=== PATIENT | male | born 1980 | race American Indian/Alaskan Native ===

== ENCOUNTER 2017-04-26 14:30 | Inpatient (IN) | payer OTHER ==
[2017-04-26 15:10] LABS: Basophils % (Auto) 0.9 % (0.0-1.8); Eosinophils % (Auto) 3.8 % (0.0-4.3); Hemoglobin 16.1 gm/dl (11.8-15.2); Mean Corpuscular HGB Conc 33 % (32-34); Mean Corpuscular Hemoglobin 28 pg (28-32); Mean Corpuscular Volume 86 fl (84-94); Platelet Count 157 K/mm3 (140-440); Red Blood Count 5.72 M/mm3 (3.65-5.03); Red Cell Distribution Width 14.5 % (13.2-15.2); White Blood Count 7.4 K/mm3 (4.5-11.0)
[2017-04-26 15:30] LABS: Anion Gap 16 mmol/L; BUN/Creatinine Ratio 4.28; Blood Urea Nitrogen 6 mg/dL (9-20); Calcium 8.6 mg/dL (8.4-10.2); Carbon Dioxide 28 mmol/L (22-30); Chloride 101.5 mmol/L (98-107); Glucose 101 mg/dL (75-100); Potassium 4.5 mmol/L (3.6-5.0); Sodium 141 mmol/L (137-145)
--- NOTE | 2017-04-26 16:29 | XRay Report ---
FINAL REPORT EXAM: XR CHEST ROUTINE 2V HISTORY: Shortness of breath TECHNIQUE: 2 view examination of the chest PRIORS: None FINDINGS: There is no visible pulmonary consolidation, pleural effusion, or pneumothorax. Cardiac silhouette size is normal without vascular congestion. No visible acute pathology in the regional skeleton. IMPRESSION: No evidence of acute cardiopulmonary disease
--- NOTE | 2017-04-26 19:53 | Cat Scan Report ---
FINAL REPORT PROCEDURE: CT angiogram chest with contrast. TECHNIQUE: Computerized tomographic angiography of the chest was performed after the IV injection of iodinated nonionic contrast including image processing. The image data was postprocessed using 2-dimensional multiplanar reformatted (MPR) and 3-dimensional (MIP and/or volume rendered) techniques. HISTORY: Shortness of breath. COMPARISON: No prior studies are available for comparison. FINDINGS: The trachea and central bronchi appear normal. The thoracic aorta has a normal caliber without evidence of dissection. There are filling defects within central branches of the right pulmonary artery. These are consistent with acute pulmonary emboli. There is no mediastinal adenopathy. The heart size is normal. There are no pleural effusions. There is a tiny peripheral area of wedge-shaped opacity located posteriorly in the left lower lobe. This is nonspecific. It could represent a small focus of pneumonia, subsegmental atelectasis or possibly pulmonary infarction. The remainder of the lungs are clear and well expanded. The thoracic skeleton appears intact. IMPRESSION: Acute pulmonary embolism in the right lung.
[2017-04-26] MEDS ORDERED: NACL 0.9% 1000 ML 1,000 ML IV ONE (20:11)
[2017-04-26] MEDS ORDERED: LOVENOX SUB-Q ONE (20:11)
--- NOTE | 2017-04-26 20:31 | Emergency Department Report ---
ED Shortness of Breath HPI - General Chief Complaint: Dyspnea/Respdistress Stated Complaint: MILTON/CHEST PAIN Time Seen by Provider: 04/26/17 20:22 Source: patient Mode of arrival: Ambulatory Limitations: No Limitations - History of Present Illness MD Complaint: shortness of breath -: Gradual Radiation: back Severity: moderate Pain Scale: 6 Quality: dull, aching Consistency: constant Improves With: nothing Worsens With: nothing Associated Symptoms: chest pain, pain with inspiration, orhopnia, palpitations Treatments Prior to Arrival: none - Related Data Home Oxygen Therapy: No Allergies Allergy/AdvReac Type Severity Reaction Status Date / Time No Known Allergies Allergy Unverified 04/26/17 14:46 ED Review of Systems ROS: Stated complaint: MILTON/CHEST PAIN Other details as noted in HPI Comment: All other systems reviewed and negative ED Past Medical Hx - Past Medical History Previous Medical History?: No - Surgical History Past Surgical History?: No - Social History Smoking Status: Current Every Day Smoker Substance Use Type: Alcohol, Marijuana ED Physical Exam - General Limitations: No Limitations General appearance: alert, in no apparent distress - Head Head exam: Present: atraumatic, normocephalic - Eye Eye exam: Present: normal appearance - ENT ENT exam: Present: normal exam, normal orophraynx, mucous membranes moist - Neck Neck exam: Present: normal inspection - Respiratory Respiratory exam: Present: normal lung sounds bilaterally. Absent: respiratory distress - Cardiovascular Cardiovascular Exam: Present: regular rate, normal rhythm. Absent: systolic murmur, diastolic murmur, rubs, gallop - GI/Abdominal GI/Abdominal exam: Present: soft, normal bowel sounds - Rectal Rectal exam: Present: deferred - Extremities Exam Extremities exam: Present: normal inspection - Back Exam Back exam: Present: normal inspection - Neurological Exam Neurological exam: Present: alert, oriented X3 - Psychiatric Psychiatric exam: Present: normal affect, normal mood - Skin Skin exam: Present: warm, dry, intact, normal color. Absent: rash ED Course Vital Signs 04/26/17 04/26/17 14:46 20:01 Temperature 98.1 F 97.8 F Pulse Rate 101 H 66 Respiratory 16 20 Rate Blood Pressure 135/98 Blood Pressure 131/84 [Left] O2 Sat by Pulse 96 99 Oximetry ED Medical Decision Making - Lab Data Result diagrams: 04/26/17 14:57 04/26/17 14:57 - EKG Data -: EKG Interpreted by Me - EKG Data When compared to previous EKG there are: no significant change - Radiology Data Radiology results: report reviewed, image reviewed - Medical Decision Making will need admission for PE, lovenox and fluids given , will need admission for further treatment Critical care attestation.: If time is entered above; I have spent that time in minutes in the direct care of this critically ill patient, excluding procedure time. ED Disposition Clinical Impression: Pulmonary embolism Disposition: OP ADMIT IP TO THIS HOSP Is pt being admited?: Yes Does the pt Need Aspirin: No Condition: Good Referrals: PRIMARY CARE, [Primary Care Provider] - 3-5 Days Time of Disposition: 20:31
[2017-04-26 20:32] LABS: INR 0.99 (0.87-1.13); Partial Thromboplastin Time 25.8 Sec. (24.2-36.6)
[2017-04-26] MEDS ORDERED: ZOFRAN IV PRN (23:24)
[2017-04-26] MEDS ORDERED: TYLENOL PO PRN (23:24)
[2017-04-26] MEDS ORDERED: PERCOCET 5/325 PO PRN (23:24)
[2017-04-26] MEDS ORDERED: MILK OF MAGNESIA PO PRN (23:24)
[2017-04-26] MEDS ORDERED: DULCOLAX PR PRN (23:24)
--- NOTE | 2017-04-26 23:27 | History and Physical Report ---
History of Present Illness Date of examination: 04/26/17 History of present illness: 37-year-old man with no medical history comes emergency room with complaints of chest pain located on the right chest which she described as something pressing down on her chest, constant, started yesterday, intensity 7/10, no radiation, he cannot identify exacerbating or relieving factors. He denies nausea vomiting , shortness breath, diaphoresis and palpitation. Also complaining of pain in the right calf. Denies any recent travel, cough, abdominal pain, hematochezia, dysuria, frequency, focal weakness, dysarthria, fever chills, polydipsia polyuria, hot or cold intolerance, easy bruisability, or rash or bleeding from mucosal membrane, rhinorrhea, epistaxis, earache, tinnitus, blurry vision, eye discharge, anxiety, depression. Other review of systems negative PAST SURGICAL HISTORY: wrist SOCIAL HISTORY: Smoke half a pack of cigarette a day, alcohol use, marijuana use FAMILY HISTORY: Hypertension Medications and Allergies Allergies Allergy/AdvReac Type Severity Reaction Status Date / Time No Known Allergies Allergy Unverified 04/26/17 14:46 Exam - Physical Exam Narrative exam: Gen. appearance: Patient lying in bed, no apparent distress HEENT: Normocephalic, atraumatic, pupils equally round and reactive to light, extraocular movement intact, and no sclericterus,. No JVD or thyromegaly or nodule,neck supple, no carotid bruit ,mucous membranes moist, no exudate or erythema Heart: S1, S2, regular rate and rhythm Lungs: Clear to auscultation bilaterally, breathing comfortable Abdomen: Positive bowel sounds, nontender, nondistended, no organomegaly Extremity: No edema, cyanosis, clubbing Skin: No rash, nodules, warm, dry Neuro: Oriented 3, cranial nerves II-12 intact, speech is fluent, motor and sensory intact - Constitutional Vitals: Temp Pulse Resp BP Pulse Ox 98 F 58 L 18 125/56 95 04/26/17 20:50 04/26/17 20:50 04/26/17 20:50 04/26/17 20:50 04/26/17 20:50 Results - Labs CBC & Chem 7: 04/27/17 03:51 04/27/17 03:51 Labs: Abnormal lab results 04/26/17 04/26/1717 Range/Units 14:57 14:57 14:57 RBC 5.72 H (3.65-5.03) M/mm3 Hgb 16.1 H (11.8-15.2) gm/dl Hct 49.0 H (35.5-45.6) % Seg Neutrophils % 72.8 H (40.0-70.0) % D-Dimer 646.41 H (0-234) ng/mlDDU BUN 6 L (9-20) mg/dL Glucose 101 H (75-100) mg/dL - Imaging and Cardiology EKG: image reviewed Chest x-ray: image reviewed CT scan - chest: report reviewed Assessment and Plan Acute pulmonary emboli Admit to medicine start full dose lovenox, obtain doppler of lower extremity DVT prophalaxis initiated Patient will need coagulopathy workup once anticoagulation is discontinued
[2017-04-27 04:59] LABS: Basophils % (Auto) 0.6 % (0.0-1.8); Eosinophils % (Auto) 4.9 % (0.0-4.3); Hematocrit 44.2 % (35.5-45.6); Hemoglobin 14.4 gm/dl (11.8-15.2); Mean Corpuscular HGB Conc 33 % (32-34); Mean Corpuscular Hemoglobin 28 pg (28-32); Mean Corpuscular Volume 85 fl (84-94); Platelet Count 148 K/mm3 (140-440); Red Blood Count 5.19 M/mm3 (3.65-5.03); Red Cell Distribution Width 14.1 % (13.2-15.2); White Blood Count 8.4 K/mm3 (4.5-11.0)
[2017-04-27 05:19] LABS: Anion Gap 10 mmol/L; BUN/Creatinine Ratio 4.54; Blood Urea Nitrogen 5 mg/dL (9-20); Calcium 7.8 mg/dL (8.4-10.2); Carbon Dioxide 29 mmol/L (22-30); Chloride 105.4 mmol/L (98-107); Glucose 116 mg/dL (75-100); Potassium 3.7 mmol/L (3.6-5.0); Sodium 141 mmol/L (137-145)
[2017-04-27] MEDS: LOVENOX SUB-Q SCH ×2 (08:30→21:11)
--- NOTE | 2017-04-27 13:28 | Progress Note ---
Assessment and Plan 37-year-old man with no medical history comes emergency room with complaints of chest pain located on the right chest. CTA showed RT Lung PE, venous doppler also showed rt LE DVT. States that he recently drove from [place]. Acute pulmonary emboli RT LE DVT - monitor at medicine - cont full dose lovenox, place on coumadin - Patient will need coagulopathy workup once anticoagulation is discontinued as outpt Subjective Date of service: 04/27/17 Interval history: pt seen and examined Pt c/o rt LE pain denies any chest pain now, breathing improved Objective - Constitutional Vitals: Vital Signs - 12hr 04/27/17 04/27/17 04/27/17 01:44 04:00 07:31 Temperature 98 F 98.2 F 98.9 F Pulse Rate 75 Pulse Rate [ 82 60 Right Radial] Respiratory 18 18 18 Rate Blood Pressure 120/62 [Left] Blood Pressure 126/60 110/61 [Right Arm] O2 Sat by Pulse 100 99 96 Oximetry 04/27/17 04/27/17 08:35 09:12 Temperature Pulse Rate 60 Pulse Rate [ Right Radial] Respiratory Rate Blood Pressure [Left] Blood Pressure [Right Arm] O2 Sat by Pulse 98 Oximetry General appearance: Present: no acute distress, well-nourished - EENT Eyes: PERRL, EOM intact ENT: hearing intact, clear oral mucosa Ears: bilateral: normal - Neck Neck: supple, normal ROM - Respiratory Respiratory effort: normal Respiratory: bilateral: CTA - Cardiovascular Rhythm: regular Heart Sounds: Present: S1 & S2. Absent: gallop, rub Extremities: pulses intact, No edema, normal color, Full ROM, abnormal (rt calf tenderness) - Gastrointestinal General gastrointestinal: Present: soft, non-tender, non-distended, normal bowel sounds - Integumentary Integumentary: clear, warm, dry - Musculoskeletal Musculoskeletal: 1, strength equal bilaterally - Neurologic Neurologic: moves all extremities - Psychiatric Psychiatric: memory intact, appropriate mood/affect, intact judgment & insight - Labs CBC & Chem 7: 04/27/17 03:51 04/27/17 03:51 Labs: Abnormal lab results 04/27/17 04/27/17 Range/Units 03:51 03:51 RBC 5.19 H (3.65-5.03) M/mm3 Eos % (Auto) 4.9 H (0.0-4.3) % BUN 5 L (9-20) mg/dL Glucose 116 H (75-100) mg/dL Calcium 7.8 L (8.4-10.2) mg/dL - Imaging and cardiology CT scan - chest: report reviewed Venous US: report reviewed
[2017-04-27] MEDS: COUMADIN PO SCH (16:45)
[2017-04-27] MEDS ORDERED: COUMADIN PO SCH (17:00)
--- NOTE | 2017-04-28 02:43 | Admit Criteria Form ---
Admission Criteria Documentation: PULMONARY EMBOLISM Clinical Indications for Admission to Inpatient Care (Place 'X' for any and all applicable criteria): Admission is indicated for 1 or more of the following(1)(2)(3)(4)(5)(6)(7) [ ]I. Hypoxemia [ ]II. Vital sign abnormality (8) indicated by ALL of the following: [ ]a) Vital sign findings not as expected for chronic patient condition or baseline (eg, intentionally low, blood pressure in heart failure) [ ]b) Vital sign abnormality as indicated by 1 or more of the following [ ]l) Tachycardia [ ]ll) Hypotension [ ]lll) Orthostatic vital sign changes [ ]III. History of cancer [ ]IV. History of chronic cardiopulmonary disease (eg. CHF, coronary artery disease, COPD, cor pulmonale) [ ]V. Cardiac arrhythmias of intermediate concern [ ]. Right ventricular dysfunction (eg, by echocardiogram) [ ]VII. Positive cardiac biomarker (eg, troponin T or I > 0.1 ng/mL (mcg/L), highly sensitive troponin I assay greater than 0.014 ng/mL (mcg/L), BNP or NT proBNP > assay threshold)(8 )(10)(11) [ ]VIII. Need for IV narcotics (eg, to treat dyspnea) 1 or more of following: [ ]a) Bleeding before anticoagulation [ ]b) Recent surgery (eg, within 3 months) that increases risk of catastrophic bleeding (eg, spinal surgery, intracranial surgery, cardiovascular surgery) [ ]c) Recent GI bleeding (eg, within 3 months) or known increased risk of GI bleed (eg,esophageal varices, current ulcer) [ ]d) Recent (eg, within 3 months) ischemic stroke [ ]e) History of intracranial bleeding (eg, hemorrhagic stroke) [ ]f) History of active bleeding when anticoagulated [ ]g) Active substance abuse [ ]h) Other risk factor thought to place patient at high risk such that ability to rapidly reverse reversal agent) [ ]X. Documented extensive thrombosis (eg, clot in vena cava or above iliofemoral bifurcation) [ ]Xl. Thrombolysis (eg, catheter-directed) or pharmacomechanical thrombectomy needed[A][B](8) [ ]XIl. Vena cava filter placement needed (eg, unable to anticoagulate)[C](8) [ ]Xlll. with delivery planned (eg, 37 or more weeks' gestation)(14 ) [ ]XlV. Limb-threatening thrombosis (eg, phlegmasia cerula dolens) [ ]XV. Embolism while on anti-coagulation [ ]XVl. Contraindication to outpatient use of medication with rapid anticoagulation effect as indicated by ALL of the following: [ ] a) Contraindication to use of rdh-gesfkijau-wherwx heparin[E][F ] indicated by 1 or more of the following(16): [ ] i) Documented current or history of heparin-induced thrombocytopenia(15) [ ] ii) Severe thrombocytopenia (eg, platelet count less than 50 ,000/mm3 (50 x109/L)) [ ] iii) Allergy to heparin, vub-iudojnkrk-fgrooh heparin, or product component [ ] iv) Renal failure (creatinine clearance less than 30 mL/min/ 1.73m2 (0.50 mL/sec/1.73m2) or on dialysis) [ ] v) Need for neuraxial anesthesia or spinal puncture anticipated [ ] vi) Inability to manage self-injection (eg. By patient, caregiver, or visiting nurse) [ ] b) Contraindication to use of fondaparinux indicated by 1 or more of the following: [ ] i) Documented current or history of heparin-induced thrombocytopenia (15) [ ] ii) Severe thrombocytopenia (eg, platelet count less than 50 ,000/mm3 (50 x109/L)) [ ] iii) Allergy to fondaparinux, related drugs, or product components [ ] iv) Renal failure (creatinine clearance less than 30 mL/min/ 1.73m2 (0.50 mL/sec/1.73m2) or on dialysis) [ ] v) [ ] vi) Liver disease with coagulopathy (eg, elevated INR due to liver disease) [ ] vii) Mechanical heart valve [ ] viii) Need for neuraxial anesthesia or spinal puncture anticipated [ ] xi) Inability to manage self-injection (eg, by patient, caregiver, or visiting nurse) [ ] c) Contraindication to use of an oral direct thrombin inhibitor (eg, dabigatran) or an oral coagulation factor Xa inhibitor (eg, rivaroxaban, apixaban)[E][F] indicated by 1 or more of the following(17)(18): [ ] i) Severe thrombocytopenia (eg, platelet count less than 50, 000/mm3 (50 x109/L)) [ ] ii) Allergy to medication or product components x109/L)) [ ] iii) Renal failure (creatinine clearance less than 30 mL/min /1.73m2 (0.50 mL/sec/1.73m2) or on dialysis) [ ] iv) [ ] v) Liver disease with coagulopathy (eg, elevated INR due to liver disease) [ ] vi) Mechanical heart valve [ ] vii) Need for neuraxial anesthesia or spinal puncture anticipated [ X]XVll. Inpatient admission required rather than observation care (Also use Pulmonary Embolism: Observation Care guideline as appropriate) because of ANY ONE of the following: [ ] a) Significant autoimmune (thrombocytopenia) or coagulopathic reaction occurs in response to anticoagulation [ ] b) Respiratory symptoms (eg, tachypnea, dyspnea) that are severe or persistent [X ] c) Other condition, treatment, or monitoring requiring inpatient admission The original [facility] content created by [employer] has been revised. The portions of the content which have been revised are identified through the use of italic text or in bold, and [facility] has neither reviewed nor approved the modified material. All other unmodified content is copyright [facility]. Please see references footnoted in the original [facility] edition 2017 Admission Criteria Met: Yes
--- NOTE | 2017-04-28 07:37 | Vascular Lab Report ---
LOWER EXTREMITY VENOUS DUPLEX: REASON FOR EXAM: Pain and swelling of the lower extremities. COMMENTS ON THE RIGHT: Acute deep venous thrombosis is noted in the peroneal vein extending through and into the above-knee segment of popliteal vein.. The remaining veins visualized are freely compressible without evidence of internal echogenicity. Spontaneous and phasic flow is present proximally. COMMENTS ON THE LEFT: All veins visualized are freely compressible without evidence of internal echogenicity. Flow is spontaneous and phasic throughout. IMPRESSION: Acute deep venous thrombosis in the right lower extremity
[2017-04-28] MEDS: LOVENOX SUB-Q SCH ×2 (08:47→21:10)
[2017-04-28 15:25] LABS: INR 1.06 (0.87-1.13)
[2017-04-28] MEDS: COUMADIN PO SCH (16:54)
--- NOTE | 2017-04-29 00:34 | Progress Note ---
Assessment and Plan 37-year-old man with no medical history comes emergency room with complaints of chest pain located on the right chest. CTA showed RT Lung PE, venous doppler also showed rt LE DVT. States that he recently drove from [place]. Acute pulmonary emboli RT LE DVT - monitor at medicine - cont full dose lovenox, place on coumadin - Patient will need coagulopathy workup once anticoagulation is discontinued as outpt Subjective Date of service: 04/28/17 Interval history: pt seen and examined denies any chest pain now, breathing improved Objective - Constitutional Vitals: Vital Signs - 12hr 04/28/17 04/28/17 04/28/17 15:45 19:00 20:11 Temperature 98.5 F 98.6 F Pulse Rate [ 58 L 67 Right Radial] Respiratory 22 23 Rate Blood Pressure 121/60 115/70 [Right Arm] O2 Sat by Pulse 96 96 Oximetry General appearance: Present: no acute distress, well-nourished - EENT Eyes: PERRL, EOM intact ENT: hearing intact, clear oral mucosa Ears: bilateral: normal - Neck Neck: supple, normal ROM - Respiratory Respiratory effort: normal Respiratory: bilateral: CTA - Cardiovascular Rhythm: regular Heart Sounds: Present: S1 & S2. Absent: gallop, rub Extremities: pulses intact, No edema, normal color, Full ROM - Gastrointestinal General gastrointestinal: Present: soft, non-tender, non-distended, normal bowel sounds - Integumentary Integumentary: clear, warm, dry - Musculoskeletal Musculoskeletal: 1, strength equal bilaterally - Neurologic Neurologic: moves all extremities - Psychiatric Psychiatric: memory intact, appropriate mood/affect, intact judgment & insight - Labs CBC & Chem 7: 04/27/17 03:51 04/27/17 03:51
[2017-04-29] MEDS: LOVENOX SUB-Q SCH ×2 (08:44→21:20)
[2017-04-29 09:54] LABS: INR 1.26 (0.87-1.13)
--- NOTE | 2017-04-29 10:11 | Progress Note ---
Assessment and Plan Assessment and plan: Acute pulmonary embolism right lung. Started on Lovenox, coumadin. INR 1.26 today. to discharge home when INR>2 DVT right lower ext. He had recent road trip from [place]. Consult Hematology Full code status History Interval history: Right leg pain improved, Less chest pain Hospitalist Physical - Physical exam Narrative exam: Gen Appearance: No acute distress, HEENT: normocephalic, atraumatic Neck: supple, no JVD Lungs: clear to auscultation bilaterally, no crackles or wheezes Heart: S1 and S2 regular, no murmurs rubs or gallop Abdomen: Soft, non-tender, non-distended, normal bowel sounds Extremity:No edema, clubbing or cyanosis Neuro : Awake alert oriented 3, no focal neurological signs Psych :calm - Constitutional Vitals: Temp Pulse Resp BP Pulse Ox 98.2 F 55 L 18 117/66 98 04/29/17 08:00 04/29/17 08:00 04/29/17 08:00 04/29/17 08:00 04/29/17 08:00 General appearance: Present: no acute distress, well-nourished Results - Labs CBC & Chem 7: 04/27/17 03:51 04/27/17 03:51 Labs: Laboratory Last Values WBC 8.4 K/mm3 (4.5-11.0) 04/27/17 03:51 RBC 5.19 M/mm3 (3.65-5.03) H 04/27/17 03:51 Hgb 14.4 gm/dl (11.8-15.2) 04/27/17 03:51 Hct 44.2 % (35.5-45.6) 04/27/17 03:51 MCV 85 fl (84-94) 04/27/17 03:51 MCH 28 pg (28-32) 04/27/17 03:51 MCHC 33 % (32-34) 04/27/17 03:51 RDW 14.1 % (13.2-15.2) 04/27/17 03:51 Plt Count 148 K/mm3 (140-440) 04/27/17 03:51 Lymph % (Auto) 27.2 % (13.4-35.0) 04/27/17 03:51 [place]vert % (Auto) 5.1 % (0.0-7.3) 04/27/17 03:51 Eos % (Auto) 4.9 % (0.0-4.3) H 04/27/17 03:51 Baso % (Auto) 0.6 % (0.0-1.8) 04/27/17 03:51 Lymph # 2.3 K/mm3 (1.2-5.4) 04/27/17 03:51 Calvert # 0.4 K/mm3 (0.0-0.8) 04/27/17 03:51 Eos # 0.4 K/mm3 (0.0-0.4) 04/27/17 03:51 Baso # 0.0 K/mm3 (0.0-0.1) 04/27/17 03:51 Seg Neutrophils % 62.2 % (40.0-70.0) 04/27/17 03:51 Seg Neutrophils # 5.2 K/mm3 (1.8-7.7) 04/27/17 03:51 PT 15.7 Sec. (12.2-14.9) H 04/29/17 06:56 INR 1.26 (0.87-1.13) H 04/29/17 06:56 APTT 25.8 Sec. (24.2-36.6) 04/26/17 14:57 D-Dimer 646.41 ng/mlDDU (0-234) H 04/26/17 14:57 Sodium 141 mmol/L (137-145) 04/27/17 03:51 Potassium 3.7 mmol/L (3.6-5.0) 04/27/17 03:51 Chloride 105.4 mmol/L (98-107) 04/27/17 03:51 Carbon Dioxide 29 mmol/L (22-30) 04/27/17 03:51 Anion Gap 10 mmol/L 04/27/17 03:51 BUN 5 mg/dL (9-20) L 04/27/17 03:51 Creatinine 1.1 mg/dL (0.8-1.5) 04/27/17 03:51 Estimated GFR > 60 ml/min 04/27/17 03:51 BUN/Creatinine Ratio 4.54 % 04/27/17 03:51 Glucose 116 mg/dL (75-100) H 04/27/17 03:51 Calcium 7.8 mg/dL (8.4-10.2) L 04/27/17 03:51 Troponin T < 0.010 ng/mL (0.00-0.029) 04/26/17 14:57
--- NOTE | 2017-04-29 16:17 | Hem/Onc Consultation ---
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 He spends a lot of time driving short trips. Had a trip with his family to [place] recently but stopped frequently. No prolonged trips without stopping. No recent surgery but does have a history of surgery 4 years ago in the right leg where he now has a DVT. He smokes 1/2 ppd. He does not use testosterone. No personal or family history of other clots. Chest is currently feeling much better, breathing is easier. Past History Past Medical History: No medical history Past Surgical History: Other (right foot surgery 2012) Social history: smoking Family history: no significant family history Medications and Allergies Allergies Allergy/AdvReac Type Severity Reaction Status Date / Time No Known Allergies Allergy Unverified 04/26/17 14:46 Home Medications Medication Instructions Recorded Confirmed Last Taken Type No Known Home Medications [No 04/28/17 04/28/17 Unknown History Reported Home Medications] Active Meds: Active Medications Acetaminophen (Tylenol) 650 mg PO Q4H PRN PRN Reason: Pain MILD(1-3)/Fever >100.5/DAVILA Bisacodyl (Dulcolax) 10 mg [place] QDAY PRN PRN Reason: Constipation unrelieved by MOM Enoxaparin Sodium (Lovenox) 90 mg 1 mg/kg (90 mg) SUB-Q Q12H [facility] Last Admin: 04/29/17 08:44 Dose: 90 mg Magnesium Hydroxide (Milk Of Magnesia) 30 ml PO Q4H PRN PRN Reason: Constipation Ondansetron HCl (Zofran) 4 mg IV Q8H PRN PRN Reason: N/V unrelieved by Reglan Oxycodone/Acetaminophen (Percocet 5/325) 1 tab PO Q6H PRN PRN Reason: Pain, Moderate (4-6) Warfarin Sodium (Coumadin Pharmacy To Dose) 1 each PO PKCONSULT [facility] PRN Reason: Protocol Warfarin Sodium (Coumadin) 10 mg PO DAILY@1700 [facility] Last Admin: 04/28/17 16:54 Dose: 10 mg Review of Systems Constitutional: no fatigue Ears, nose, mouth and throat: no mouth pain Cardiovascular: shortness of breath Respiratory: shortness of breath Musculoskeletal: no myalgias Neurological: no headaches Exam - Constitutional Vitals: Last Vital Signs Temp 98.2 F 04/29/17 08:00 Pulse 64 04/29/17 11:00 Resp 20 04/29/17 10:00 BP 117/66 04/29/17 08:00 Pulse Ox 98 04/29/17 08:00 - Neck Neck: normal ROM - Respiratory Respiratory effort: Positive: normal - Cardiovascular Rhythm: regular Extremities: No edema - Gastrointestinal General gastrointestinal: Present: soft, non-tender - Integumentary Integumentary: warm, dry - Neurologic Neurologic: no focal deficits Results - Labs lab Results: Laboratory Results - last 24 hr 04/29/17 06:56 PT 15.7 H INR 1.26 H Assessment and Plan DVT/PE - 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
[2017-04-29] MEDS: COUMADIN PO SCH (16:30)
[2017-04-30 04:45] LABS: INR 1.57 (0.87-1.13)
[2017-04-30] MEDS: LOVENOX SUB-Q SCH ×2 (08:30→19:55)
--- NOTE | 2017-04-30 10:13 | Progress Note ---
Assessment and Plan Assessment and plan: Acute pulmonary embolism right lung. Started on Lovenox, coumadin. INR 1.57 today. To discharge home when INR>2, likely in 1-2 days. I had discussions with him. he was evaluated by [facility] DVT right lower ext. He had recent road trip from [place]. Hematology following. Full code status History Interval history: Right leg pain improved, Less chest pain, Anxious about wanting to go home Hospitalist Physical - Physical exam Narrative exam: Gen Appearance: No acute distress, HEENT: normocephalic, atraumatic Neck: supple, no JVD Lungs: clear to auscultation bilaterally, no crackles or wheezes Heart: S1 and S2 regular, no murmurs rubs or gallop Abdomen: Soft, non-tender, non-distended, normal bowel sounds Extremity:No edema, clubbing or cyanosis Neuro : Awake alert oriented 3, no focal neurological signs Psych :calm - Constitutional Vitals: Temp Pulse Resp BP Pulse Ox 98.3 F 65 18 101/69 97 04/30/17 07:36 04/30/17 07:36 04/30/17 07:36 04/30/17 07:36 04/30/17 07:36 General appearance: Present: no acute distress, well-nourished Results - Labs CBC & Chem 7: 04/27/17 03:51 04/27/17 03:51 Labs: Laboratory Last Values WBC 8.4 K/mm3 (4.5-11.0) 04/27/17 03:51 RBC 5.19 M/mm3 (3.65-5.03) H 04/27/17 03:51 Hgb 14.4 gm/dl (11.8-15.2) 04/27/17 03:51 Hct 44.2 % (35.5-45.6) 04/27/17 03:51 MCV 85 fl (84-94) 04/27/17 03:51 MCH 28 pg (28-32) 04/27/17 03:51 MCHC 33 % (32-34) 04/27/17 03:51 RDW 14.1 % (13.2-15.2) 04/27/17 03:51 Plt Count 148 K/mm3 (140-440) 04/27/17 03:51 Lymph % (Auto) 27.2 % (13.4-35.0) 04/27/17 03:51 [place] % (Auto) 5.1 % (0.0-7.3) 04/27/17 03:51 Eos % (Auto) 4.9 % (0.0-4.3) H 04/27/17 03:51 Baso % (Auto) 0.6 % (0.0-1.8) 04/27/17 03:51 Lymph # 2.3 K/mm3 (1.2-5.4) 04/27/17 03:51 [place] # 0.4 K/mm3 (0.0-0.8) 04/27/17 03:51 Eos # 0.4 K/mm3 (0.0-0.4) 04/27/17 03:51 Baso # 0.0 K/mm3 (0.0-0.1) 04/27/17 03:51 Seg Neutrophils % 62.2 % (40.0-70.0) 04/27/17 03:51 Seg Neutrophils # 5.2 K/mm3 (1.8-7.7) 04/27/17 03:51 PT 18.7 Sec. (12.2-14.9) H 04/30/17 04:20 INR 1.57 (0.87-1.13) H 04/30/17 04:20 APTT 25.8 Sec. (24.2-36.6) 04/26/17 14:57 D-Dimer 646.41 ng/mlDDU (0-234) H 04/26/17 14:57 Sodium 141 mmol/L (137-145) 04/27/17 03:51 Potassium 3.7 mmol/L (3.6-5.0) 04/27/17 03:51 Chloride 105.4 mmol/L (98-107) 04/27/17 03:51 Carbon Dioxide 29 mmol/L (22-30) 04/27/17 03:51 Anion Gap 10 mmol/L 04/27/17 03:51 BUN 5 mg/dL (9-20) L 04/27/17 03:51 Creatinine 1.1 mg/dL (0.8-1.5) 04/27/17 03:51 Estimated GFR > 60 ml/min 04/27/17 03:51 BUN/Creatinine Ratio 4.54 % 04/27/17 03:51 Glucose 116 mg/dL (75-100) H 04/27/17 03:51 Calcium 7.8 mg/dL (8.4-10.2) L 04/27/17 03:51 Troponin T < 0.010 ng/mL (0.00-0.029) 04/26/17 14:57
--- NOTE | 2017-04-30 11:08 | Hem/Onc Progress Note ---
Assessment and Plan - Patient Problems (1) Pulmonary embolism Current Visit: Yes Status: Acute Qualifiers: Pulmonary embolism type: P Chronicity: C Acute cor pulmonale presence: A Plan to address problem: He feels well. Explained to him the importance of outpatient followup. He understands, card with appt given to him Subjective Date of service: 04/30/17 Interval history: Feels better overall. Objective - Constitutional Vitals: Last Vital Signs Temp 98.3 F 04/30/17 07:36 Pulse 65 04/30/17 07:36 Resp 18 04/30/17 07:36 BP 101/69 04/30/17 07:36 Pulse Ox 97 04/30/17 07:36 - EENT Eyes: PERRL ENT: hearing intact Lymph node exam: negative cervical - Neck Neck: supple - Respiratory Respiratory effort: Positive: normal Respiratory: bilateral: CTA - Cardiovascular Rhythm: regular - Gastrointestinal General gastrointestinal: Present: soft - Psychiatric Psychiatric: appropriate mood/affect - Labs Lab Results: Laboratory Results - last 24 hr 04/30/17 04:20 PT 18.7 H INR 1.57 H
[2017-04-30] MEDS: COUMADIN PO SCH (17:30)
[2017-05-01 06:06] LABS: INR 1.63 (0.87-1.13)
[2017-05-01] MEDS: LOVENOX SUB-Q SCH ×2 (10:02→18:55)
--- NOTE | 2017-05-01 10:39 | Progress Note ---
Hospitalist Physical - Constitutional Vitals: Temp Pulse Resp BP Pulse Ox 98.8 F 53 L 18 112/68 98 05/01/17 07:33 05/01/17 08:14 05/01/17 07:37 05/01/17 07:33 05/01/17 07:33 General appearance: Present: no acute distress, well-nourished Results - Labs CBC & Chem 7: 04/27/17 03:51 04/27/17 03:51 Labs: Laboratory Last Values WBC 8.4 K/mm3 (4.5-11.0) 04/27/17 03:51 RBC 5.19 M/mm3 (3.65-5.03) H 04/27/17 03:51 Hgb 14.4 gm/dl (11.8-15.2) 04/27/17 03:51 Hct 44.2 % (35.5-45.6) 04/27/17 03:51 MCV 85 fl (84-94) 04/27/17 03:51 MCH 28 pg (28-32) 04/27/17 03:51 MCHC 33 % (32-34) 04/27/17 03:51 RDW 14.1 % (13.2-15.2) 04/27/17 03:51 Plt Count 148 K/mm3 (140-440) 04/27/17 03:51 Lymph % (Auto) 27.2 % (13.4-35.0) 04/27/17 03:51 [place] % (Auto) 5.1 % (0.0-7.3) 04/27/17 03:51 Eos % (Auto) 4.9 % (0.0-4.3) H 04/27/17 03:51 Baso % (Auto) 0.6 % (0.0-1.8) 04/27/17 03:51 Lymph # 2.3 K/mm3 (1.2-5.4) 04/27/17 03:51 [place] # 0.4 K/mm3 (0.0-0.8) 04/27/17 03:51 Eos # 0.4 K/mm3 (0.0-0.4) 04/27/17 03:51 Baso # 0.0 K/mm3 (0.0-0.1) 04/27/17 03:51 Seg Neutrophils % 62.2 % (40.0-70.0) 04/27/17 03:51 Seg Neutrophils # 5.2 K/mm3 (1.8-7.7) 04/27/17 03:51 PT 19.3 Sec. (12.2-14.9) H 05/01/17 04:46 INR 1.63 (0.87-1.13) H 05/01/17 04:46 APTT 25.8 Sec. (24.2-36.6) 04/26/17 14:57 D-Dimer 646.41 ng/mlDDU (0-234) H 04/26/17 14:57 Sodium 141 mmol/L (137-145) 04/27/17 03:51 Potassium 3.7 mmol/L (3.6-5.0) 04/27/17 03:51 Chloride 105.4 mmol/L (98-107) 04/27/17 03:51 Carbon Dioxide 29 mmol/L (22-30) 04/27/17 03:51 Anion Gap 10 mmol/L 04/27/17 03:51 BUN 5 mg/dL (9-20) L 04/27/17 03:51 Creatinine 1.1 mg/dL (0.8-1.5) 04/27/17 03:51 Estimated GFR > 60 ml/min 04/27/17 03:51 BUN/Creatinine Ratio 4.54 % 04/27/17 03:51 Glucose 116 mg/dL (75-100) H 04/27/17 03:51 Calcium 7.8 mg/dL (8.4-10.2) L 04/27/17 03:51 Troponin T < 0.010 ng/mL (0.00-0.029) 04/26/17 14:57
--- NOTE | 2017-05-01 10:44 | Discharge Summary ---
Providers - Providers Date of Admission: 04/26/17 23:24 Date of discharge: 05/01/17 Attending physician: OSCAR MOSLEY 04/29/17 07:57 Consult to Physician [CONS] Routine Consulting Provider: MELVIN SWANSON Reason For Exam: DVT right leg Place consult to:: Dr. Swanson Notified:: Jaycee ZAVALA Phone number called:: Was contact made?: Yes If yes, spoke with:: Leeanne-answering service Time called:: 08:56 Primary care physician: [employer] Hospitalization Condition: Good Disposition: DC-01 TO HOME OR SELFCARE - Discharge Diagnoses (1) Pulmonary embolism Status: Acute Qualifiers: Pulmonary embolism type: P Chronicity: C Acute cor pulmonale presence: A Core Measure Documentation - Palliative Care Palliative Care/ Comfort Measures: Not Applicable Exam - Constitutional Vitals: Temp Pulse Resp BP Pulse Ox 98.8 F 53 L 18 112/68 98 05/01/17 07:33 05/01/17 08:14 05/01/17 07:37 05/01/17 07:33 05/01/17 07:33 Plan Activity: advance as tolerated Diet: regular Additional Instructions: 1.Follow up with PCP or [facility] in 1 week. 2.Check INR on 05/05/17 at [facility] or Dr. Hawthorne's office. 3.Discontinue Lovenox when INR>2. 4.Coumadin dose to be adjusted by Dr. Swanson or [facility] to target INR 2-3. 5.Follow up with Dr. Swanson, Hematology in 1 week Follow up with: PRIMARY CARE, [Primary Care Provider] - 3-5 Days Forms: Warfarin Discharge Instruction Prescriptions: Enoxaparin [Lovenox] 90 mg SUB-Q Q12H #10 syringe Famotidine [Pepcid] 20 mg PO BID #60 tablet Warfarin [Coumadin] 10 mg PO DAILY@1700 #30 tablet
--- NOTE | 2017-05-01 13:30 | Hem/Onc Progress Note ---
Assessment and Plan - Patient Problems (1) Pulmonary embolism Current Visit: Yes Status: Acute Qualifiers: Pulmonary embolism type: P Chronicity: C Acute cor pulmonale presence: A Plan to address problem: He feels well. No bleeding. outpatient follow up emphasized Subjective Date of service: 05/01/17 Interval history: He feels well. No new complains. Objective - Constitutional Vitals: Last Vital Signs Temp 98.8 F 05/01/17 07:33 Pulse 53 L 05/01/17 08:14 Resp 18 05/01/17 07:37 BP 112/68 05/01/17 07:33 Pulse Ox 98 05/01/17 07:33 General appearance: no acute distress Performance status: 0-fully active - EENT Eyes: PERRL ENT: hearing intact Lymph node exam: negative cervical - Neck Neck: supple - Respiratory Respiratory effort: Positive: normal Respiratory: bilateral: CTA - Labs Lab Results: Laboratory Results - last 24 hr 05/01/17 04:46 PT 19.3 H INR 1.63 H
[2017-05-01] MEDS: COUMADIN PO SCH (17:17)
[2017-05-01 18:26] VITALS: BP 123/76
== END 2017-05-01 19:00 | disposition home or self-care (01) | DRG 175 ==
LOC: ED 14:30 → 4A 23:24
PROVIDERS: ADMIT Internal Medicine; ATTEND Internal Medicine
DX: I26.09 Other pulmonary embolism with acute cor pulmonale (principal); I82.401 Acute embolism and thrombosis of unspecified deep veins of right lower extremity; F17.210 Nicotine dependence, cigarettes, uncomplicated; F12.90 Cannabis use, unspecified, uncomplicated; Z72.89 Other problems related to lifestyle; Z82.49 Family history of ischemic heart disease and other diseases of the circulatory system
CPT/HCPCS: 36415; 71020; 71275; 80048; 84484; 85025; 85379; 85610; 85730; 93005; 93010; 93970; 94760; 96360; 96372; 99406; J1650; J7030; Q9967